=== PATIENT | male | born 1985 | race Caucasian/White ===

== ENCOUNTER 2017-05-20 16:00 | Emergency (ER) | payer OTHER ==
[~2017-05-20] VITALS: Ht 175.3 cm; Wt 90.7 kg
[2017-05-20] MEDS ORDERED: KEFLEX500 M1 PO (16:34)
[2017-05-20] MEDS ORDERED: IBUPROFEN 800800 M1 PO (16:35)
[2017-05-20 16:44] VITALS: BP 134/102
== END 2017-05-20 16:46 | disposition home or self-care (01) ==
LOC: M.ERS 16:00
DX: L03.011 Cellulitis of right finger (principal); B34.9 Viral infection, unspecified; F90.9 Attention-deficit hyperactivity disorder, unspecified type; F32.9 Major depressive disorder, single episode, unspecified; F17.200 Nicotine dependence, unspecified, uncomplicated; Z88.5 Allergy status to narcotic agent